=== PATIENT | female | born 1945 | race Two or more races ===

== ENCOUNTER → 2024-09-13 | Outpatient (CLI) | payer OTHER, SELFPAY ==
--- NOTE | 2024-09-13 09:00 | XR_ITS ---
Examination: Breast ultrasound, unilateral, left complete Date and time of exam: September 13, 2024 0950 hours INDICATIONS: Mammogram October 30, 2023 focal asymmetry posterior outer left breast Technique: Real-time stephens scale ultrasonographic imaging performed left breast including all 4 quadrants as well as nipple retroareolar and axillary region. Findings: 2:00 cyst 5 x 5 mm 2:00 cyst 4.1 x 2.7 cm, complex IMPRESSION: BI-RADS Category 0: Incomplete: Need additional imaging evaluation This patient should return for dedicated repeat left breast sonography with the radiologist in attendance
--- NOTE | 2024-09-13 09:45 | XR_ITS ---
Examination: Diagnostic digital mammography, unilateral, LEFT Computer aided detection 3-D breast Tomosynthesis, unilateral Date and time of exam: September 13, 2024 1004 hrs. Indications: Mammogram October 30, 2023 focal asymmetry posterior outer left breast Technique: Nonmagnified MLO, CC views of the left breast have been obtained, reconstructed from 3-D Tomosynthesis images. R2 computer aided detection program utilized for evaluation of suspicious masses and/or abnormal calcifications. 3-D Tomosynthesis images obtained. Findings: Scattered areas of fibroglandular density Ultrasound examination today demonstrates 2:00 complex cyst 4.1 x 2.7 cm Asymmetric density upper outer quadrant left breast again noted Impression: BI-RADS category 0: Incomplete: Need additional imaging evaluation This patient should return for repeat left breast sonography with specific attention to 2:00 complex cyst, with the radiologist in attendance
[2024-09-13 11:15] LABS: Basophils % (Auto) 1 % (0-2.5); Eosinophils # (Auto) 0.2 Thou/mm3 (0.0-0.5); Eosinophils % (Auto) 3 % (0-10); Hematocrit 43.7 % (36.0-46.0); Hemoglobin 14.1 g/dL (12.0-16.0); Immature Granulocytes % (Auto) 0 % (0-0); Immature Granulocytes Auto 0.01 Thou/mm3 (0.00-0.00); Lymphocytes # (Auto) 1.4 Thou/mm3 (1.0-4.8); Lymphocytes % (Auto) 25 % (10-50); Mean Corpuscular HGB Conc 32.3 g/dl (31.0-37.0); Mean Corpuscular Volume 87 fL (80-100); Monocytes # (Auto) 0.6 Thou/mm3 (0.0-0.8); Monocytes % (Auto) 11 % (0-12); Neutrophils # (Auto) 3.3 Thou/mm3 (1.8-7.7); Neutrophils % (Auto) 61 % (37-80); Nucleated Red Blood Cell % 0 /100 WBC (0); Platelet Count 237 Thou/mm3 (140-440); RDW Standard Deviation 47.6 fL (36.4-46.3); Red Blood Count 5.03 Miln/mm3 (4.00-5.20); White Blood Count 5.4 Thou/mm3 (3.6-11.0)
[2024-09-13 11:27] LABS: Glucose Estimated Average 103 mg/dL (80-131); Hemoglobin A1C 5.2 % Hgb (4.8-6.0)
[2024-09-13 11:29] LABS: Alanine Aminotransferase 18 U/L (10-49); Albumin, Serum 4.3 gm/dL (3.4-4.8); Albumin/Globulin Ratio 1.9 (1.2-2.2); Alkaline Phosphatase 109 U/L (46-116); Anion Gap 7 (7-16); Aspartate Amino Transferase 51 U/L (0-34); BUN/Creatinine Ratio 10 Ratio (12-20); Bilirubin,Total 0.5 mg/dL (0.3-1.2); Blood Urea Nitrogen 8 mg/dL (9-23); Carbon Dioxide 27.5 mMol/L (20.0-31.0); Cardiac Risk Estimate 3.3 RATIO (3.7-5.6); Chloride 108 mMol/L (98-107); Cholesterol 149 mg/dL (132-200); Creatinine (Component) 0.8 mg/dL (0.6-1.3); Globulin 2.3 gm/dL (2.3-3.5); Glucose 87 mg/dL (74-106); HDL Cholesterol 45 mg/dL (40-60); LDL Cholesterol,Calculated 65 mg/dL (0-130); Osmolality,Calculated 280 (275-295); Potassium 3.5 mMol/L (3.4-5.1); Sodium 142 mMol/L (136-145); Total Protein 6.6 gm/dL (5.7-8.2); Triglycerides 194 mg/dL (30-150); eGFR > 60 See Note
[2024-09-13 11:34] LABS: Creatinine MALB Rnd Ur 58 mg/dL (30-125); Microalbumin, Random Urine < 3 mg/L (0-300)
== END | disposition home or self-care (01) ==
LOC: CDIM 10:15 → COPL 10:20
PROVIDERS: PCP Internal Medicine; Referring Provider Nurse Practitioner Family; Visit Provider Radiology Diagnostic Radiology
DX: R92.8 Other abnormal and inconclusive findings on diagnostic imaging of breast (principal); E11.65 Type 2 diabetes mellitus with hyperglycemia
CPT/HCPCS: 36415; 76641; 77061; 77065; 80053; 80061; 82043; 82570; 83036; 85025; G0279

== ENCOUNTER 2025-01-01 10:02 | Day surgery (SDC) | payer OTHER, SELFPAY ==
--- NOTE | 2024-12-30 11:11 | EKG_ITS ---
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
[2024-12-30 11:36] LABS: Basophils % (Auto) 1 % (0-2.5); Eosinophils # (Auto) 0.3 Thou/mm3 (0.0-0.5); Eosinophils % (Auto) 6 % (0-10); Hematocrit 43.4 % (36.0-46.0); Hemoglobin 14.1 g/dL (12.0-16.0); Immature Granulocytes % (Auto) 0 % (0-0); Immature Granulocytes Auto 0.02 Thou/mm3 (0.00-0.00); Lymphocytes # (Auto) 1.4 Thou/mm3 (1.0-4.8); Lymphocytes % (Auto) 27 % (10-50); Mean Corpuscular HGB Conc 32.5 g/dl (31.0-37.0); Mean Corpuscular Hemoglobin 28.3 pg (25.0-35.0); Mean Corpuscular Volume 87 fL (80-100); Monocytes # (Auto) 0.6 Thou/mm3 (0.0-0.8); Monocytes % (Auto) 11 % (0-12); Neutrophils # (Auto) 2.9 Thou/mm3 (1.8-7.7); Neutrophils % (Auto) 55 % (37-80); Nucleated Red Blood Cell % 0 /100 WBC (0); Platelet Count 198 Thou/mm3 (140-440); RDW Standard Deviation 45.4 fL (36.4-46.3); Red Blood Count 4.98 Miln/mm3 (4.00-5.20); White Blood Count 5.2 Thou/mm3 (3.6-11.0)
[2024-12-30 11:58] LABS: Anion Gap 6 (7-16); BUN/Creatinine Ratio 10 Ratio (12-20); Blood Urea Nitrogen 7 mg/dL (9-23); Calcium 9.6 mg/dL (8.3-10.6); Carbon Dioxide 27.7 mMol/L (20.0-31.0); Chloride 110 mMol/L (98-107); Creatinine (Component) 0.7 mg/dL (0.6-1.3); Glucose 89 mg/dL (74-106); Osmolality,Calculated 283 (275-295); Potassium 4.2 mMol/L (3.4-5.1); Sodium 144 mMol/L (136-145); eGFR > 60 See Note
[2024-12-30 13:15] LABS: Partial Thromboplastin Time 28.6 Seconds (22.0-36.0); Prothrombin Time 11.3 Seconds (9.0-12.2)
[2024-12-30 14:02] VITALS: BMI 26.5
[2025-01-01] VITALS (13 sets, daily range): BP systolic 130–169; BP diastolic 76–99; PULSE 60–69; RESP 12–22; TEMP 36.6–36.8; O2SAT 93–100
--- NOTE | 2025-01-01 13:19 | ESOP_ITS ---
RE: BAYRON PAIZ : 1945 DATE OF OPERATION: 01/01/2025 PROCEDURE PERFORMED: 1. Diagnostic left heart cardiac catheterization, selective coronary angiogram, left ventricular angiogram, CPT 47063. 2. Conscious sedation 30 minutes duration. 3. Ultrasound guided access of the right radial artery. DIAGNOSIS: Abnormal stress test. HISTORY AND INDICATIONS: The patient is a 79-year-old with history of hypertension, hypercholesterolemia, diabetes mellitus, calcification of the coronary arteries, status post pacemaker implantation. He has shortness of breath, unspecified angina pectoris. Nuclear scan was abnormal, hence, coronary angiogram was recommended for evaluation of obstructive coronary artery disease as a cause of her symptoms and possible PCI. DESCRIPTION OF PROCEDURE: The patient was brought to cardiac catheterization laboratory. She was given 1 mg of Versed and 50 mcg of fentanyl for conscious sedation. Right radial approach was taken. Right radial artery cannulated by micropuncture technique. A 6-[place] Glidesheath introduced. Selective right and left coronary angiogram performed by 5-[place] TIG-4 diagnostic catheter. Left heart catheterization and left ventricular angiogram performed by the same catheter. The patient tolerated the procedure well, no complications. Cardiac catheterization following findings. Hemodynamics: Left ventricular pressure 118, EDP is 10, aortic pressure 120/65, mean 83. No gradient across the aortic valve. Left ventricular angiogram showed normal left ventricular wall motion, ejection fraction 70%. Coronary angiogram showed following findings. The right coronary artery showed large and dominant, showed plaque in the proximal RCA calcification with 30% narrowing. Distal RCA, PDA and PL branches are normal. Left coronary system, left main coronary artery is normal. Left anterior descending artery showed calcification of the proximal LAD, mild plaque. Otherwise, no significant stenosis. Circumflex artery is nondominant, gives off large posterolateral branches, obtuse marginal branch. All of them appeared normal, no significant obstructive disease. SUMMARY OF FINDINGS: 1. Normal hemodynamics. 2. Normal left ventricular systolic function, ejection fraction of 70%. 3. Mild atherosclerotic plaque with calcification of RCA, LAD with less than 30% stenosis of the proximal right coronary artery. RECOMMENDATIONS: The patient was reassured about the absence of significant obstructive coronary artery disease. He does have calcification of the coronary artery , recommend baby aspirin and rest of the medication. Aggressive management of hypercholesterolemia and type 2 diabetes mellitus. DT: 12:05:39 TT: 13:18:00 Ref: [id number] - TID: [id number]
--- NOTE | 2025-01-01 14:00 | PC.NURSE ---
TR band removed at this time. Surgical site asymptomatic, no active bleeding, no hematoma noted on right upper extremity or around the surgical site. Capillary refill < 3 seconds. No noted changes in color or temperature on right upper extremity. Patient denies general and localized pain, no loss in sensation, no tingling or numbness felt to right upper extremity. Tagaderm and Coban wrap applied. Will continue to monitor
--- NOTE | 2025-01-01 14:30 | PC.NURSE ---
Surgical site remains with no significant changes at this time; no active bleeding noted on right upper extremity or around the surgical site. Capillary refill <3 seconds. No noted changes in color or temperature on right upper extremity. Patient denies general and localized pain, denies tingling and numbness sensation to right upper extremity. Tagaderm and Coban wrap in place, dry, and intact. Will continue to monitor
--- NOTE | 2025-01-01 14:50 | PC.NURSE ---
1450 patient s/p C under IV sedation, TR band has been removed at 1400, patient getting dressed to get ready to go home, report received from Vu MOSQUERA, will discharge patient home at 1500, waiting for ride to arrive to give discharge instructions.
--- NOTE | 2025-01-01 15:14 | PC.NURSE ---
1508 patient is awake, alert, breathing unlabored, no bleeding noted to right wrist, discharge instructions given to patient and Ab, patient discharged home in wheelchair with all belongings.
== END 2025-01-01 15:08 | disposition home or self-care (01) ==
PROVIDERS: PCP Internal Medicine; Referring Provider Internal Medicine Cardiovascular Disease; Visit Provider Internal Medicine Cardiovascular Disease
PROC: (CPT 93458; principal; 2025-01-01 11:30)
DX: I25.118 Atherosclerotic heart disease of native coronary artery with other forms of angina pectoris (principal); E11.9 Type 2 diabetes mellitus without complications; E78.00 Pure hypercholesterolemia, unspecified; I10 Essential (primary) hypertension; Z95.0 Presence of cardiac pacemaker; Z01.810 Encounter for preprocedural cardiovascular examination
CPT/HCPCS: 93458; 36415; 80048; 85025; 85610; 85730; 93005; 99152; A4649; C1769; C1887; C1894; J0171; J0461; J1643; J2250; J2310; J2371; J3010; J3490; Q9967; J2305

== ENCOUNTER → 2025-02-11 | Outpatient (CLI) | payer OTHER, SELFPAY ==
[2025-02-11 08:14] LABS: Collection Type, Urine Clean Catch
[2025-02-11 08:38] LABS: Basophils % (Auto) 1 % (0-2.5); Eosinophils # (Auto) 0.4 Thou/mm3 (0.0-0.5); Eosinophils % (Auto) 8 % (0-10); Hematocrit 40.3 % (36.0-46.0); Immature Granulocytes % (Auto) 0 % (0-0); Immature Granulocytes Auto 0.01 Thou/mm3 (0.00-0.00); Lymphocytes # (Auto) 1.3 Thou/mm3 (1.0-4.8); Lymphocytes % (Auto) 28 % (10-50); Mean Corpuscular HGB Conc 32.3 g/dl (31.0-37.0); Mean Corpuscular Hemoglobin 28.6 pg (25.0-35.0); Mean Corpuscular Volume 89 fL (80-100); Monocytes # (Auto) 0.6 Thou/mm3 (0.0-0.8); Monocytes % (Auto) 12 % (0-12); Neutrophils # (Auto) 2.4 Thou/mm3 (1.8-7.7); Neutrophils % (Auto) 51 % (37-80); Nucleated Red Blood Cell % 0 /100 WBC (0); Platelet Count 187 Thou/mm3 (140-440); RDW Standard Deviation 47.6 fL (36.4-46.3); Red Blood Count 4.54 Miln/mm3 (4.00-5.20); White Blood Count 4.6 Thou/mm3 (3.6-11.0)
[2025-02-11 08:46] LABS: Bilirubin,Urine Negative (Negative); Blood,Urine Negative (Negative); Clarity,Urine Clear (Clear/Hazy); Color,Urine Lt-Yellow (Lt Yel-Yel); Glucose, Urine Negative (Negative); Ketones,Urine Negative (Negative); Leukocyte Esterase,Urine Positive (Negative); Nitrite,Urine Negative (Negative); PH,Urine 6.5 (5.0-7.0); Protein,Urine Negative (Neg - Trace); RBC,Urine 2 /hpf (0-3); Specific Gravity,Urine 1.013 (1.001-1.035); Squamous Epithelial Cell,Urine 1 /hpf (0-5); Urobilinogen,Urine Negative mg/dL (0.0-1.0); WBC,Urine 4 /hpf (0-5)
[2025-02-11 08:47] LABS: Glucose Estimated Average 103 mg/dL (80-131); Hemoglobin A1C 5.2 % Hgb (4.8-6.0); Parathyroid Hormone Intact 63.3 pg/ml (18.5-88.0)
[2025-02-11 08:55] LABS: Alanine Aminotransferase 31 U/L (10-49); Albumin/Globulin Ratio 1.8 (1.2-2.2); Alkaline Phosphatase 90 U/L (46-116); Anion Gap 8 (7-16); Aspartate Amino Transferase 43 U/L (0-34); BUN/Creatinine Ratio 18 Ratio (12-20); Bilirubin,Total 0.4 mg/dL (0.3-1.2); Blood Urea Nitrogen 14 mg/dL (9-23); Calcium 9.5 mg/dL (8.3-10.6); Calcium (Corrected) 9.5 mg/dL (8.5-10.1); Carbon Dioxide 28.1 mMol/L (20.0-31.0); Cardiac Risk Estimate 2.7 RATIO (3.7-5.6); Chloride 110 mMol/L (98-107); Cholesterol 165 mg/dL (132-200); Creatinine (Component) 0.8 mg/dL (0.6-1.3); Globulin 2.2 gm/dL (2.3-3.5); Glucose 103 mg/dL (74-106); HDL Cholesterol 61 mg/dL (40-60); LDL Cholesterol,Calculated 77 mg/dL (0-130); Osmolality,Calculated 291 (275-295); Potassium 4.5 mMol/L (3.4-5.1); Sodium 146 mMol/L (136-145); Thyroid Stimulating Hormone 4.14 uIU/mL (0.55-4.78); Total Protein 6.2 gm/dL (5.7-8.2); Triglycerides 137 mg/dL (30-150); eGFR > 60 See Note
[2025-02-11 09:06] LABS: Creatinine MALB Rnd Ur 63 mg/dL (30-125); Microalbumin Creat Ratio 17 mg/gCrea (<30); Microalbumin, Random Urine 11 mg/L (0-300)
== END | disposition home or self-care (01) ==
LOC: COPL 07:38
PROVIDERS: PCP Internal Medicine; Referring Provider Internal Medicine; Visit Provider Internal Medicine
DX: E11.9 Type 2 diabetes mellitus without complications (principal); E78.5 Hyperlipidemia, unspecified; I10 Essential (primary) hypertension
CPT/HCPCS: 36415; 80053; 80061; 81001; 82043; 82570; 83036; 83970; 84100; 84443; 85025

== ENCOUNTER → 2025-07-16 | Outpatient (CLI) | payer OTHER, SELFPAY ==
[2025-07-16 12:07] LABS: Glucose Estimated Average 120 mg/dL (80-131); Hemoglobin A1C 5.8 % Hgb (4.8-6.0)
[2025-07-16 12:18] LABS: Alanine Aminotransferase 12 U/L (10-49); Albumin, Serum 4.1 gm/dL (3.4-4.8); Albumin/Globulin Ratio 2.0 (1.2-2.2); Alkaline Phosphatase 86 U/L (46-116); Anion Gap 9 (7-16); Aspartate Amino Transferase 29 U/L (0-34); BUN/Creatinine Ratio 10 Ratio (12-20); Bilirubin,Total 0.4 mg/dL (0.3-1.2); Blood Urea Nitrogen 8 mg/dL (9-23); Calcium 9.8 mg/dL (8.3-10.6); Calcium (Corrected) 9.8 mg/dL (8.5-10.1); Carbon Dioxide 28.5 mMol/L (20.0-31.0); Cardiac Risk Estimate 2.2 RATIO (3.7-5.6); Chloride 110 mMol/L (98-107); Cholesterol 133 mg/dL (132-200); Creatinine (Component) 0.8 mg/dL (0.6-1.3); Globulin 2.1 gm/dL (2.3-3.5); Glucose 93 mg/dL (74-106); HDL Cholesterol 60 mg/dL (40-60); LDL Cholesterol,Calculated 56 mg/dL (0-130); Osmolality,Calculated 290 (275-295); Potassium 4.2 mMol/L (3.4-5.1); Sodium 147 mMol/L (136-145); Thyroid Stimulating Hormone 3.11 uIU/mL (0.55-4.78); Total Protein 6.2 gm/dL (5.7-8.2); Triglycerides 83 mg/dL (30-150); eGFR > 60 See Note
== END | disposition home or self-care (01) ==
LOC: COPL 09:47
PROVIDERS: PCP Internal Medicine; Referring Provider Internal Medicine; Visit Provider Internal Medicine
DX: E11.9 Type 2 diabetes mellitus without complications (principal); I10 Essential (primary) hypertension; E78.5 Hyperlipidemia, unspecified; E03.9 Hypothyroidism, unspecified
CPT/HCPCS: 36415; 80053; 80061; 83036; 84443

== ENCOUNTER → 2025-11-17 | Outpatient (CLI) | payer OTHER, SELFPAY ==
[2025-11-17 11:21] LABS: Collection Type, Urine Clean Catch
[2025-11-17 11:47] LABS: Basophils # (Auto) 0.0 Thou/mm3 (0.0-0.2); Basophils % (Auto) 1 % (0-2.5); Eosinophils # (Auto) 0.2 Thou/mm3 (0.0-0.5); Eosinophils % (Auto) 5 % (0-10); Hematocrit 43.1 % (36.0-46.0); Hemoglobin 13.6 g/dL (12.0-16.0); Immature Granulocytes Auto 0.01 Thou/mm3 (0.00-0.00); Lymphocytes # (Auto) 1.1 Thou/mm3 (1.0-4.8); Lymphocytes % (Auto) 26 % (10-50); Mean Corpuscular HGB Conc 31.6 g/dl (31.0-37.0); Mean Corpuscular Hemoglobin 27.6 pg (25.0-35.0); Mean Corpuscular Volume 87 fL (80-100); Monocytes # (Auto) 0.6 Thou/mm3 (0.0-0.8); Monocytes % (Auto) 14 % (0-12); Neutrophils # (Auto) 2.3 Thou/mm3 (1.8-7.7); Neutrophils % (Auto) 54 % (37-80); Nucleated Red Blood Cell # 0.00 Thou/mm3 (0.00-0.00); Nucleated Red Blood Cell % 0 /100 WBC (0); Platelet Count 216 Thou/mm3 (140-440); RDW Standard Deviation 43.8 fL (36.4-46.3); Red Blood Count 4.93 Miln/mm3 (4.00-5.20); White Blood Count 4.3 Thou/mm3 (3.6-11.0)
[2025-11-17 11:59] LABS: Glucose Estimated Average 114 mg/dL (80-131); Hemoglobin A1C 5.6 % Hgb (4.8-6.0)
[2025-11-17 12:01] LABS: Alanine Aminotransferase 12 U/L (10-49); Albumin, Serum 4.6 gm/dL (3.4-4.8); Albumin/Globulin Ratio 1.7 (1.2-2.2); Alkaline Phosphatase 94 U/L (46-116); Anion Gap 7 (7-16); Aspartate Amino Transferase 28 U/L (0-34); BUN/Creatinine Ratio 8 Ratio (12-20); Bilirubin,Total 0.3 mg/dL (0.3-1.2); Blood Urea Nitrogen 7 mg/dL (9-23); Calcium 9.6 mg/dL (8.3-10.6); Calcium (Corrected) 9.6 mg/dL (8.5-10.1); Carbon Dioxide 28.5 mMol/L (20.0-31.0); Cardiac Risk Estimate 2.5 RATIO (3.7-5.6); Chloride 110 mMol/L (98-107); Cholesterol 170 mg/dL (132-200); Creatinine (Component) 0.9 mg/dL (0.6-1.3); Globulin 2.7 gm/dL (2.3-3.5); Glucose 105 mg/dL (74-106); HDL Cholesterol 69 mg/dL (40-60); LDL Cholesterol,Calculated 77 mg/dL (0-130); Osmolality,Calculated 286 (275-295); Potassium 5.3 mMol/L (3.4-5.1); Sodium 145 mMol/L (136-145); Thyroid Stimulating Hormone 1.67 uIU/mL (0.55-4.78); Total Protein 7.3 gm/dL (5.7-8.2); Triglycerides 122 mg/dL (30-150); eGFR > 60 See Note
[2025-11-17 12:01] LABS: Creatinine MALB Rnd Ur 142 mg/dL (30-125); Microalbumin Creat Ratio 8 mg/gCrea (<30); Microalbumin, Random Urine 12 mg/L (0-300)
[2025-11-17 12:19] LABS: Bacteria,Urine Rare; Bilirubin,Urine Negative (Negative); Blood,Urine Negative (Negative); Clarity,Urine Turbid (Clear/Hazy); Color,Urine Yellow (Lt Yel-Yel); Glucose, Urine Negative (Negative); Ketones,Urine Negative (Negative); Leukocyte Esterase,Urine Positive (Negative); Nitrite,Urine Negative (Negative); PH,Urine 7.0 (5.0-7.0); Protein,Urine Trace (Neg - Trace); RBC,Urine 3 /hpf (0-3); Specific Gravity,Urine 1.019 (1.001-1.035); Squamous Epithelial Cell,Urine 2 /hpf (0-5); Urobilinogen,Urine 2.0 mg/dL (0.0-1.0); WBC,Urine 5 /hpf (0-5)
== END | disposition home or self-care (01) ==
LOC: COPL 10:07
PROVIDERS: PCP Internal Medicine; Referring Provider Internal Medicine; Visit Provider Internal Medicine
DX: E11.9 Type 2 diabetes mellitus without complications (principal); I10 Essential (primary) hypertension; E78.5 Hyperlipidemia, unspecified; E03.9 Hypothyroidism, unspecified
CPT/HCPCS: 36415; 80053; 80061; 81001; 82043; 82570; 83036; 84443; 85025